=== PATIENT | female | born 2000 | race Caucasian/White ===

== ENCOUNTER 2020-02-12 17:48 | Outpatient (REF) | payer BC, SELFPAY ==
[2020-02-12 19:21] LABS: COVID-19 Test Negative (Negative)
== END 2020-02-12 17:49 | disposition home or self-care (01) ==
LOC: HO.LAB 17:48
PROVIDERS: PCP Pediatrics; Visit Provider Internal Medicine
DX: Z20.828 Contact with and (suspected) exposure to other viral communicable diseases (principal)
CPT/HCPCS: 87635

== ENCOUNTER 2020-03-19 08:00 | Outpatient (REF) | payer OTHER, SELFPAY ==
[2020-03-19 10:01] LABS: COVID-19 Test Negative (Negative)
== END 2020-03-19 08:01 | disposition home or self-care (01) ==
LOC: HO.EMPCOV 08:00
PROVIDERS: Visit Provider Internal Medicine
DX: Z20.828 Contact with and (suspected) exposure to other viral communicable diseases (principal)
CPT/HCPCS: 87635; C9803

== ENCOUNTER 2020-03-24 15:01 | Outpatient (REF) | payer OTHER, SELFPAY ==
[2020-03-24 15:29] LABS: COVID-19 Test Negative (Negative)
[2020-04-01 13:39] LABS: COVID-19 Test Negative (Negative)
[2020-04-13 10:09] LABS: SARS-COV-2 PCR UMBRL Not Detected
[2020-04-20 12:25] LABS: COVID-19 Test Negative (Negative)
[2020-04-30 08:28] LABS: SARS-COV-2 PCR UMBRL DETECTED
[2020-05-17 09:57] LABS: SARS-COV-2 PCR UMBRL NEGATIVE
== END 2020-03-24 15:02 | disposition home or self-care (01) ==
LOC: HO.EMPCOV 15:01
PROVIDERS: PCP Pediatrics; Visit Provider Internal Medicine
DX: Z20.828 Contact with and (suspected) exposure to other viral communicable diseases (principal)
CPT/HCPCS: 36415; 87635; C9803; U0003

== ENCOUNTER 2020-05-22 12:10 | Outpatient (REF) | payer OTHER, SELFPAY ==
[2020-05-25 14:51] LABS: SARS-COV-2 PCR UMBRL NEGATIVE
== END 2020-05-22 12:11 | disposition home or self-care (01) ==
LOC: HO.LAB 12:10
PROVIDERS: Visit Provider Internal Medicine
DX: Z20.822 Contact with and (suspected) exposure to COVID-19 (principal)
CPT/HCPCS: 36415; C9803; U0003

== ENCOUNTER 2020-05-29 12:20 | Outpatient (REF) | payer OTHER, SELFPAY ==
[2020-06-02 08:53] LABS: SARS-COV-2 PCR UMBRL NEGATIVE
== END 2020-05-29 12:21 | disposition home or self-care (01) ==
LOC: HO.LAB 12:20
PROVIDERS: Visit Provider Internal Medicine
DX: Z20.822 Contact with and (suspected) exposure to COVID-19 (principal)
CPT/HCPCS: C9803; U0003

== ENCOUNTER 2020-06-15 08:56 | Outpatient (REF) | payer OTHER, SELFPAY ==
[2020-06-17 08:07] LABS: SARS-COV-2 PCR UMBRL NEGATIVE
== END 2020-06-15 08:57 | disposition home or self-care (01) ==
LOC: HO.EMPCOV 08:56
PROVIDERS: Visit Provider Internal Medicine
DX: Z20.822 Contact with and (suspected) exposure to COVID-19 (principal)
CPT/HCPCS: 36415; C9803; U0003

== ENCOUNTER 2020-07-13 11:09 | Outpatient (REF) | payer OTHER, SELFPAY ==
[2020-07-15 08:32] LABS: SARS-COV-2 PCR UMBRL NEGATIVE
== END 2020-07-13 11:10 | disposition home or self-care (01) ==
LOC: HO.LAB 11:09
PROVIDERS: Visit Provider Internal Medicine
DX: Z20.822 Contact with and (suspected) exposure to COVID-19 (principal)
CPT/HCPCS: 36415; C9803; U0003

== ENCOUNTER 2020-11-19 10:04 | Outpatient (REF) | payer OTHER, BC, SELFPAY ==
[2020-11-23 14:42] LABS: DRVVT 1:1 Mix CORRECTED (CORRECTED); DRVVT Confirmation POSITIVE (NEGATIVE); PTT (LAC) Screen 29 sec (< OR = 40)
[2020-11-24 12:37] LABS: Cardiolipin IgG Ab 5.6 GPL-U/mL; Cardiolipin IgM Ab 15.7 MPL-U/mL
== END 2020-11-19 10:05 | disposition home or self-care (01) ==
LOC: HO.LAB 10:04
PROVIDERS: Visit Provider Acupuncturist
DX: L93.0 Discoid lupus erythematosus (principal)
CPT/HCPCS: 36415; 85597; 85613; 85730; 86147

== ENCOUNTER 2021-11-24 06:41 | Outpatient (REF) | payer BC, OTHER, SELFPAY ==
[2021-11-24 06:46] LABS: MANUAL DIFF FLAG NO
[2021-11-24 07:41] LABS: Basophils Percent Auto 0.5 % (0-2); Eosinophils Absolute Auto 0.3 X10*3/uL (0.0-0.4); Eosinophils Percent Auto 3.9 % (0-4); Hematocrit 40.9 % (37.0-47.0); Hemoglobin 13.8 g/dl (12.0-16.0); Imm Gran Abs Auto 0.02 X10*3/uL (0.00-0.03); Imm Gran Pct Auto 0.3 % (0.0-0.4); Lymphocytes Percent Auto 27.2 % (20-40); Mean Corpuscular HGB Conc 33.7 g/dl (31.0-35.0); Mean Corpuscular Hemoglobin 29.6 pg (27.0-33.0); Mean Corpuscular Volume 87.8 fL (80.0-98.0); Mean Platelet Volume 10.6 fL (9.4-12.3); Monocytes Absolute Auto 0.8 X10*3/uL (0.1-1.2); Neutrophils Absolute Auto 4.2 x10*3/uL (2.0-8.3); Neutrophils Percent Auto 57.1 % (45-73); Platelet Count 231 X10*3/uL (160-400); Red Blood Count 4.66 X10*6/uL (4.20-5.50); Red Cell Distribution Width 11.9 % (11.0-16.0); White Blood Count 7.4 X10*3/uL (4.8-10.8)
[2021-11-24 08:17] LABS: Alanine Aminotransferase 11 U/L (0-31); Albumin Level 4.4 g/dL (3.5-5.0); Alkaline Phosphatase 47 U/L (39-117); Anion Gap 10 (12-20); Aspartate Amino Transferase 16 U/L (5-31); Bilirubin Total 1.3 mg/dL (0.0-1.0); Blood Urea Nitrogen 13 mg/dL (9-16); Calcium 8.9 mg/dL (8.4-10.2); Carbon Dioxide 26 mmol/L (22-29); Chloride 106 mmol/L (96-108); Estimated Glomerular Filt Rate > 60; Glucose Fasting 82 mg/dL (60-99); Potassium 4.5 mmol/L (3.3-5.1); Sodium 137 mmol/L (135-145); Total Protein 7.2 g/dL (6.5-8.0)
[2021-11-24 08:40] LABS: TSH reflex Free T4 1.66 uIU/mL (0.32-4.0)
[2021-11-24 08:45] LABS: Folate 16.2 ng/mL (> or = 4.0); Vitamin B12 633 pg/mL (200-900)
== END 2021-11-24 06:42 | disposition home or self-care (01) ==
LOC: HO.LAB 06:41
PROVIDERS: PCP Nurse Practitioner Family; Visit Provider Nurse Practitioner Family
DX: Z00.00 Encounter for general adult medical examination without abnormal findings (principal); Z13.29 Encounter for screening for other suspected endocrine disorder
CPT/HCPCS: 36415; 80053; 82306; 82607; 82746; 84443; 85025

== ENCOUNTER → 2022-02-17 13:18 | Outpatient (RCR) | payer OTHER, SELFPAY ==
[2020-06-28 12:03] LABS: SARS-COV-2 PCR UMBRL NEGATIVE
[2020-07-03 08:27] LABS: SARS-COV-2 PCR UMBRL NEGATIVE
[2020-07-17 09:02] LABS: SARS-COV-2 PCR UMBRL NEGATIVE
[2020-08-01 10:42] LABS: COVID-19 Test Negative (Negative)
[2020-08-17 12:05] LABS: COVID-19 Test Negative (Negative)
[2020-09-07 09:11] LABS: COVID-19 Test Negative (Negative)
== END | disposition home or self-care (01) ==
LOC: HO.EMPCOV 06-25 13:03
PROVIDERS: Visit Provider Internal Medicine
DX: Z20.828 Contact with and (suspected) exposure to other viral communicable diseases (principal)
CPT/HCPCS: 36415; 87635; C9803; U0003; U0005